=== PATIENT | female | born 1950 | race Caucasian/White ===

== ENCOUNTER 2016-11-02 19:38 | Emergency (ER) | payer MEDICARE, OTHER ==
[~2016-11-02] VITALS: Ht 162.6 cm; Wt 77.1 kg
[~2016-11-02 19:38] MED LIST: [UNRECOGNIZED DRUG - CODE] PO; [UNRECOGNIZED DRUG - CODE] PO
--- NOTE | 2016-11-02 20:09 | PHYS DOC ---
Past Medical History Past Medical History: Seizure, Other Additional Past Medical Histor: Addisons, tumor pituatary gland Past Surgical History: Other Additional Past Surgical Histo: tumor removed pituatary Alcohol Use: None Drug Use: None Adult General Chief Complaint Chief Complaint: SORE THROAT HPI HPI Patient is a 65 year old female who presents with sore throat. Patient reports since last night she has been having a sore throat. She also feels like her tongue is little bit swollen. She reports she had an episode of little bit of shortness of breath earlier today, although as this has resolved. No difficulty breathing at this time. No chest discomfort at any point. Of note, patient started taking prednisone about 5 days ago for reported mite bites to her BLE. Review of Systems Review of Systems Constitutional: Denies fever or chills Eyes: Denies change in visual acuity or eye pain HENT: Sore throat Respiratory: Denies cough or shortness of breath Cardiovascular: Denies chest pain GI: Denies abdominal pain, nausea, vomiting, bloody stools or diarrhea : Denies dysuria or hematuria Musculoskeletal: Denies back pain or joint pain Integument: Denies rash or skin lesions Neurologic: Denies headache, focal weakness or sensory changes Current Medications Current Medications Current Medications Medications (Trade) Dose Ordered Sig/Talya Start Time Stop Time Status Last Admin Dose Admin Fluconazole (Diflucan) 100 mg 1X ONCE 11/02/16 20:30 11/02/16 20:31 DC 11/02/16 20:30 100 MG Ibuprofen (Motrin) 600 mg 1X ONCE 11/02/16 20:30 11/02/16 20:31 DC 11/02/16 20:45 600 MG Nystatin 5 ml 1X ONCE 11/02/16 20:30 11/02/16 20:31 DC 11/02/16 20:45 5 ML Allergies Allergies Allergies Coded Allergies Type Severity Reaction Last Updated Verified Penicillins Allergy Intermediate 12/07/13 Yes Physical Exam Physical Exam Constitutional: Well developed, well nourished, no acute distress, non-toxic appearance HENT: Normocephalic, atraumatic, bilateral external ears normal. Oropharynx with scattered thick white plaque most prominent on tongue Eyes: EOMI, conjunctiva normal, no discharge Neck: Normal range of motion, no stridor Cardiovascular: Heart rate normal, regular rhythm, no murmur Lungs & Thorax: Bilateral breath sounds clear to auscultation Abdomen: Bowel sounds normal, soft, non-distended, no TTP Skin: Warm, dry, no erythema, few scattered punctate non-raised lesions to BLE Extremities: No obvious deformity, no edema Neurologic: Alert and oriented X 3, no gross deficits noted Current Patient Data Vital Signs Vital Signs Date Time Temp Pulse Resp B/P Pulse Ox O2 Delivery O2 Flow Rate FiO2 11/02/16 20:45 79 18 173/75 99 Room Air 11/02/16 20:00 99.2 99.2 Lab Values Laboratory Tests Test 11/02/16 20:55 White Blood Count 18.4x10^3/uL (4.0-11.0) H Red Blood Count 5.59x10^6/uL (3.50-5.40) H Hemoglobin 12.2g/dL (12.0-15.5) Hematocrit 38.6% (36.0-47.0) Mean Corpuscular Volume 69fL (79-100) L Mean Corpuscular Hemoglobin 22pg (25-35) L Mean Corpuscular Hemoglobin Concent 32g/dL (31-37) Red Cell Distribution Width 20.1% (11.5-14.5) H Platelet Count 311x10^3/uL (140-400) Neutrophils (%) (Auto) 67% (31-73) Lymphocytes (%) (Auto) 21% (24-48) L Monocytes (%) (Auto) 10% (0-9) H Eosinophils (%) (Auto) 2% (0-3) Basophils (%) (Auto) 0% (0-3) Neutrophils # (Auto) 12.3x10^3uL (1.8-7.7) H Lymphocytes # (Auto) 3.9x10^3/uL (1.0-4.8) Monocytes # (Auto) 1.9x10^3/uL (0.0-1.1) H Eosinophils # (Auto) 0.3x10^3/uL (0.0-0.7) Basophils # (Auto) 0.1x10^3/uL (0.0-0.2) Segmented Neutrophils % 63% (35-66) Band Neutrophils % 2% (0-9) Lymphocytes % 25% (24-48) Monocytes % 9% (0-10) Basophils % 1% (0-3) Platelet Estimate Adequate (ADEQUATE) Polychromasia Slight Hypochromasia Mod Microcytosis Marked Ovalocytes Few Schistocytes Occ Sodium Level 142mmol/L (136-145) Potassium Level 3.8mmol/L (3.5-5.1) Chloride Level 102mmol/L (98-107) Carbon Dioxide Level 31mmol/L (21-32) Anion Gap 9 (6-14) Blood Urea Nitrogen 15mg/dL (7-20) Creatinine 1.0mg/dL (0.6-1.0) Estimated GFR (Cockcroft-Gault) 55.6 Glucose Level 93mg/dL (70-99) Calcium Level 8.6mg/dL (8.5-10.1) Troponin I Quantitative < 0.017ng/mL (0.000-0.055) Laboratory Tests 11/02/16 20:55 Laboratory Tests 11/02/16 20:55 EKG EKG EKG ( my read): sinus rhythm, rate 80, borderline LAD, intervals wnl, no acute ischemic changes Radiology/Procedures Radiology/Procedures CXR (my read): No significant change from prior Course & Med Decision Making Course & Med Decision Making Pertinent Labs and Imaging studies reviewed. (See chart for details) Patient is 65-year-old female who presents with sore throat. Physical exam shows thrush, the apparent cause of her sore throat. Suspect this is related to her prednisone use that she started about 5 days ago. EKG, chest x-ray, labs ordered to screen as patient had an episode of shortness of breath earlier, although no significant concern about this and she has not had any chest discomfort and she is longer feeling short of breath. EKG and chest x-ray okay per my read. Labs notable for leukocytosis, presumably due to steroid use. Oral nystatin and fluconazole ordered to treat thrush. Discussed results with patient , who is feeling better at this time. Will plan discharge home with prescription for fluconazole, instructions for close follow-up, strict return precautions. Dragon Disclaimer Dragon Disclaimer This electronic medical record was generated, in whole or in part, using a voice recognition dictation system. Departure Departure Impression: Primary Impression: Oral thrush Disposition: 01 HOME, SELF-CARE Condition: STABLE Referrals: PETRA GREENWOOD (PCP) Patient Instructions: Thrush, Adult Additional Instructions: Thank you for allowing us to provide care today in the Emergency Department. Take the provided medication as directed. Schedule a follow up appointment with your primary care doctor. Return promptly to the Emergency Department if you develop any new or concerning symptoms. Scripts Fluconazole 100 Mg Tablet1 Tab PO DAILY #10 TAB Prov:BRENT WHITAKER MD 11/02/16 BRENT WHITAKER MD Nov 02, 2016 20:09
[2016-11-02] MEDS ORDERED: IBUPROFEN 100 MG/5 ML ORAL.SUSP. PO ONE (20:30)
[2016-11-02] MEDS ORDERED: NYSTATIN 100,000 UNITS/ML 5 ML ORAL.SUSP. SWSW ONE (20:30)
[2016-11-02] MEDS ORDERED: FLUCONAZOLE 100 MG TABLET. PO ONE (20:30)
[2016-11-02 20:45] VITALS: BP 173/75
[2016-11-02 21:08] LABS: BASO # 0.1 x10^3/uL (0.0-0.2); BASO % 0 % (0-3); EOS % 2 % (0-3); HEMATOCRIT 38.6 % (36.0-47.0); HEMOGLOBIN 12.2 g/dL (12.0-15.5); LYMPH # 3.9 x10^3/uL (1.0-4.8); LYMPH % 21 % (24-48); MEAN CORPUSCULAR HEMOGLOBIN 22 pg (25-35); MEAN CORPUSCULAR HGB CONC 32 g/dL (31-37); MEAN CORPUSCULAR VOLUME 69 fL (79-100); MONO % 10 % (0-9); NEUT % 67 % (31-73); PLATELET COUNT 311 x10^3/uL (140-400); RED BLOOD COUNT 5.59 x10^6/uL (3.50-5.40); RED CELL DISTRIBUTION WIDTH 20.1 % (11.5-14.5); WHITE BLOOD COUNT 18.4 x10^3/uL (4.0-11.0)
[2016-11-02 21:23] LABS: CALCIUM 8.6 mg/dL (8.5-10.1); GFR 55.6; POTASSIUM 3.8 mmol/L (3.5-5.1)
[2016-11-02 21:30] LABS: % BASOS 1 % (0-3)
[2016-11-02 21:33] LABS: HYPOCHROMIA MOD; MICROCYTOSIS MARKED; PLT ESTIMATE ADEQUATE (ADEQUATE); POLYCHROMASIA SLIGHT; SCHISTOCYTES OCC
[2016-11-02 21:34] LABS: OVALOCYTES FEW
[2016-11-02] MEDS ORDERED: FLUC100T4 PO (21:53)
--- NOTE | 2016-11-03 08:11 | RAD ---
Exam: PA and lateral chest radiograph History: Shortness of breath. Comparison: 09/22/2014. Findings: Cardiomediastinal silhouette is within normal limits for size. Bilateral lung shahid are free of focal infiltrate. No pleural effusion is seen. Aortic atherosclerosis is noted. Dextroconvex scoliosis is again seen. Impression: No acute cardiopulmonary process.
--- NOTE | 2016-11-03 11:26 | EKG ---
[facility] [address] [place] [address] Test Date: 2016-11-02 Test Time: 19:52:27 Pat Name: RACHELE INIGUEZ Department: Room: Gender: F Learning Support Resource Room Teacher: : 1950 Requested By: BRENT WHITAKER Order Number: [id number] Reading MD: Bunny Reyes Measurements Intervals [place] Rate: 80 P: 0 IL: 158 QRS: 0 QRSD: 70 T: 17 QT: 360 QTc: 419 Interpretive Statements SINUS RHYTHM Electronically Signed On 11-05-2016 9:41:34 CT SCAN [employer] PROCEDURES TECHNOLOGIST by Bunny Reyes
== END 2016-11-02 22:08 | disposition home or self-care (01) ==
LOC: ER 19:38
DX: B37.0 Candidal stomatitis (principal); Z88.0 Allergy status to penicillin
CPT/HCPCS: 36415; 71020; 80048; 84484; 85007; 85027; 93005; 99285-25

== ENCOUNTER 2017-05-14 17:23 | Emergency (ER) | payer MEDICARE, OTHER ==
[~2017-05-14] VITALS: Ht 167.6 cm; Wt 79.4 kg
[~2017-05-14 17:23] MED LIST changes: +FLUC100T4 PO
[2017-05-14 17:34] VITALS: BP 181/81
--- NOTE | 2017-05-14 18:12 | PHYS DOC ---
Past Medical History Past Medical History: Arthritis, Seizure, TIA, Other Additional Past Medical Histor: Addisons, VERTIGO Past Surgical History: Other Additional Past Surgical Histo: tumor removed pituatary Alcohol Use: None Drug Use: None Adult General Chief Complaint Chief Complaint: TOE PROBLEM [facility] HPI Patient is a 66 year old female presents to the emergency department stating that she tripped over her grandson today and is having pain in her right foot along the third fourth and fifth meta-tarsal area. She does have bruising noted. Patient is also stating that she's having left femur pain and discomfort. She states she's been able to ambulate a little bit with discomfort. Patient also states that she is taken Aleve prior to arrival. She denies any numbness or tingling into the foot except for she states that the great toe feels stiff on the right foot. Peripheral pulses 2+ cap refill brisk less than 2 seconds good sensation noted. Review of Systems Review of Systems Constitutional: Denies fever or chills [] Eyes: Denies change in visual acuity, redness, or eye pain [] HENT: Denies nasal congestion or sore throat [] Respiratory: Denies cough or shortness of breath [] Cardiovascular: No additional information not addressed in HPI [] GI: Denies abdominal pain, nausea, vomiting, bloody stools or diarrhea [] : Denies dysuria or hematuria [] Musculoskeletal: Denies back pain. Right foot pain, left femur pain Integument: Denies rash or skin lesions [] Neurologic: Denies headache, focal weakness or sensory changes [] Endocrine: Denies polyuria or polydipsia [] Allergies Allergies Allergies Coded Allergies Type Severity Reaction Last Updated Verified Penicillins Allergy Intermediate 12/07/13 Yes Physical Exam Physical Exam Constitutional: Well developed, well nourished, no acute distress, non-toxic appearance. [] HENT: Normocephalic, atraumatic, bilateral external ears normal, oropharynx moist, no oral exudates, nose normal. [] Eyes: PERRLA, EOMI, conjunctiva normal, no discharge. [] Neck: Normal range of motion, no tenderness, supple, no stridor. [] Cardiovascular:Heart rate regular rhythm, no murmur [] Lungs & Thorax: Bilateral breath sounds clear to auscultation [] Skin: Warm, dry, no erythema, no rash. [] Back: No tenderness Extremities: Right foot pain and discomfort with bruising noted along the third fourth and fifth metatarsal area. Complaint of left femur Tenderness, no cyanosis, no clubbing, ROM intact, no edema. [] Neurologic: Alert and oriented X 3, normal motor function, normal sensory function, no focal deficits noted. [] Psychologic: Affect normal, judgement normal, mood normal. [] Current Patient Data Vital Signs Vital Signs Date Time Temp Pulse Resp B/P (MAP) Pulse Ox O2 Delivery O2 Flow Rate FiO2 05/14/17 17:34 98.0 110 18 96 Room Air 98.0 EKG EKG [] Radiology/Procedures Radiology/Procedures [] Course & Med Decision Making Course & Med Decision Making Pertinent Labs and Imaging studies reviewed. (See chart for details) X-rays were negative for any bony abnormalities per Dr. Ruano. Patient will be placed in a postop shoe with recommendations for ice packs on 20 minutes off 20 minutes several times a day. Elevation as much as possible. Patient may take Aleve or ibuprofen for pain and discomfort. Patient will be provided with orthopedic to follow-up with in the next week if she continues to have pain and discomfort. Patient agrees with discharge instructions, treatment regimens and follow-up recommendations. [] Dragon Disclaimer Dragon Disclaimer This electronic medical record was generated, in whole or in part, using a voice recognition dictation system. Departure Departure Impression: Primary Impression: Fall Additional Impressions: Right foot pain Pain of left femur Disposition: 01 HOME, SELF-CARE Condition: STABLE Referrals: PETRA GREENWOOD (PCP) JOAQUIN HAGER MD Patient Instructions: Fall Prevention and Home Safety, [id number], Foot Contusion, Muscle Strain, [id number] Additional Instructions: Your x-rays were negative for any bony abnormalities. Wear the postop shoe for the next week. Ice packs on 20 minutes off 20 minutes several times a day. Elevation as much as possible. Tylenol or ibuprofen for pain and discomfort. Follow-up with orthopedic within the next week. Return back to emergency prior signs symptoms of become worse. Problem Qualifiers GILL YOUNG APRN May 14, 2017 18:12
--- NOTE | 2017-05-15 08:41 | RAD ---
Right foot radiograph 3 views Indication: Tripped and fell, right foot pain. Comparison: January 30, 2011 right foot radiograph. Findings: There is marked diffuse bony demineralization which limits evaluation for subtle fractures. No definite acute fracture or traumatic malalignment. There are scattered mid foot degenerative changes. Impression: Marked bony demineralization which limits evaluation for subtle fractures with no definite acute fracture or traumatic malalignment.
--- NOTE | 2017-05-15 08:42 | RAD ---
2 view left femur 05/14/2017 Indication: Tripped and fell with left leg pain. Comparison: None. Findings: No acute fracture or traumatic mild alignment of the diaphysis of the left femur. Soft tissues are unremarkable. Impression: No acute osseous abnormality.
== END 2017-05-14 18:31 | disposition home or self-care (01) ==
LOC: ER 17:23
DX: M79.671 Pain in right foot (principal); M79.605 Pain in left leg; M19.90 Unspecified osteoarthritis, unspecified site; Z86.73 Personal history of transient ischemic attack (TIA), and cerebral infarction without residual deficits; Z88.0 Allergy status to penicillin; W01.0XXA Fall on same level from slipping, tripping and stumbling without subsequent striking against object, initial encounter; Y93.89 Activity, other specified; Y92.89 Other specified places as the place of occurrence of the external cause; Y99.8 Other external cause status
CPT/HCPCS: 73552; 73630; 99284